=== PATIENT | male | born 1995 | race Caucasian/White ===

== ENCOUNTER 2017-01-05 08:41 | Emergency (ER) | payer BC, OTHER ==
--- NOTE | ~2017-01-05 | US140 ---
[facility] A Service of [facility] RADIOLOGY TEXT RESULTS PATIENT: JAYLAN ELIZONDO LOCATION: [place] : [birth year] UNIT #: [id number] AGE: [address]: Franci Zambrano SEX: M ORDER DR: [id number] [facility] [address] [place], [place] [address] [id number] MR#: [id number] #: [id number] NAME: JAYLAN ELIZONDO : 1995 SEX: M STUDY DATE/TIME: 01/05/2017 9:40 UNIT: [place] ROOM: STUDY DESCRIPTION: [facility] [employer] Attending Physician: Franci Zambrano P.A.-C. Ordering Physician: Franci Zambrano P.A.-C. Primary Care Physician: Primary Care Physician No MEDICAL IMAGING REPORT This report is preliminary unless electronic signature is present EXAM Right upper extremity DVT study, 01/05/2017 COMPARISON None HISTORY Pain in the right upper arm that started yesterday after wrestling. FINDINGS Structural coombs-scale analysis, color Doppler flow analysis and waveform analysis of the right upper extremity deep and superficial large veins were performed as per the protocol. The visualized right internal jugular vein, right subclavian vein, right axillary vein, right deep brachial vein, right superficial brachial veins are patent without any obvious thrombus. Compression of the vein is seen with augmentation. The visualized proximal and distal cephalic and basilic superficial veins are also intact without any superficial venous thrombosis. IMPRESSION Within normal limits. Dictated by... Derek Rios M.D. THIS IS AN ELECTRONICALLY VERIFIED REPORT Derek Rios M.D. at 01/05/2017 3:49 PM CPR/fela TD: 01/05/2017 10:31 JOB #: [id number] [facility] A Service of [facility] RADIOLOGY TEXT RESULTS PATIENT: JAYLAN ELIZONDO LOCATION: [place] : [birth year] UNIT #: [id number] AGE: [address]: Franci Zambrano SEX: M ORDER DR: MEDICAL IMAGING REPORT Page 1 of 1 COPY
[~2017-01-05 08:41] MED LIST: AMOXICILLIN PO; FLONASE16 GM; PHENERGAN25 M1 PO
== END 2017-01-05 10:44 | disposition home or self-care (01) ==
LOC: CED 08:41
DX: S46.211A Strain of muscle, fascia and tendon of other parts of biceps, right arm, initial encounter (principal); F17.210 Nicotine dependence, cigarettes, uncomplicated; X58.XXXA Exposure to other specified factors, initial encounter; Y93.72 Activity, wrestling; Y92.009 Unspecified place in unspecified non-institutional (private) residence as the place of occurrence of the external cause
CPT/HCPCS: 29240; 93971; 99284